=== PATIENT | female | born 1990 | race Caucasian/White ===

== ENCOUNTER 2016-09-24 18:14 | Inpatient (IN) | payer SELFPAY ==
[~2016-09-24] VITALS: Ht 165.1 cm; Wt 71.2 kg
[2016-09-24] MEDS ORDERED: SODIUM CHLORIDE 0.9% 1,000 ML IV ONE ×3 (19:08→22:30)
[2016-09-24] MEDS ORDERED: KETOROLAC TROMETH 30 MG/ML 1ML VIAL IV ONE (19:15)
[2016-09-24] MEDS ORDERED: ONDANSETRON HCL 4 MG/2 ML VIAL IV ONE (19:15)
[2016-09-24] MEDS ORDERED: ACETAMINOPHEN 325 MG TAB PO ONE ×2 (20:25→20:30)
[2016-09-24 22:04] LABS: Basophils # (auto) 0 uL; Eosinophils # (auto) 0 uL; Eosinophils % (auto) 0.2 % (0.0-7.0); Hematocrit 39.4 % (36.0-46.0); Hemoglobin 12.6 g/dL (12.2-16.2); Lymphocytes # (auto) 0.2 uL; Lymphocytes % (auto) 1.4 % (10.0-50.0); Mean Corpuscular Hemoglobin 28.5 pg (28.0-32.0); Mean Corpuscular Hgb Conc. 31.9 g/dL (32.0-36.0); Mean Corpuscular Volume 89.2 fL (80.0-100.0); Mean Platelet Volume 7.6 fL (7.4-10.4); Monocytes # (auto) 0.4 uL; Neutrophils % (auto) 95.4 % (37.0-80.0); Platelet Count (auto) 130 10^3/uL (140-450); Red Cell Distribution Width 13.2 % (11.6-16.0); SUSPECT VIEW TRANSMISSION; White Blood Cell 12.6 10^3/uL (4.4-10.8)
[2016-09-24 22:28] LABS: Albumin 2.6 g/dL (3.4-5.0); Calcium 6.9 mg/dL (8.5-10.1); Magnesium 1.4 mg/dL (1.6-2.6); Potassium 3.2 mmol/L (3.5-5.1)
[2016-09-24 22:30] LABS: Bilirubin, Total 0.7 mg/dL (0.2-1.0); Total Protein 6.2 g/dL (6.4-8.2)
[2016-09-24] MEDS ORDERED: ONDANSETRON HCL 4 MG/2 ML VIAL IV PRN (22:30)
[2016-09-24] MEDS ORDERED: VANCOMYCIN PER PHARMACY 0 MG IV SCH (22:30)
[2016-09-24] MEDS ORDERED: SODIUM CHLORIDE 0.9% 250 ML IV ONE (22:30)
[2016-09-24] MEDS ORDERED: LACTULOSE 20Gm/30ML SOLN PO PRN (22:30)
[2016-09-24] MEDS ORDERED: PANTOPRAZOLE SODIUM 40 MG/10 ML VIAL IV ONE (22:30)
[2016-09-24] MEDS ORDERED: VANCOMYCIN 1GM/250ML D5W 250 ML IV ONE (22:30)
[2016-09-24] MEDS ORDERED: LEVOFLOXACIN 500MG 100 ML IV ONE (22:30)
[2016-09-24] MEDS ORDERED: POTASSIUM CHL 10% (20 MEQ/15ML) ORAL SOLN PO ONE (22:45)
[2016-09-24 23:07] LABS: Platelet Estimate Decreased; RBC Morphology Normal
[2016-09-24 23:19] LABS: Urine RBC None Seen /hpf (0 - 4)
[2016-09-24 23:32] LABS: Urine Bilirubin Negative (Negative); Urine Color Yellow (Yellow); Urine Glucose TRACE mg/dL (Normal); Urine Granular Cast FEW /lpf (0); Urine Hyaline Cast FEW /lpf (0 - 2); Urine Ketone Negative (Negative); Urine Mucus FEW (None Seen); Urine Nitrite Negative (Negative); Urine Squamous Epithelial Cell MANY /hpf (<5); Urine Urobilinogen Normal (Negative); Urine pH 5.5 (5.0-8.0)
[2016-09-24 23:33] LABS: Urine Blood 1+ /uL (Negative)
[2016-09-25] VITALS (7 sets, daily range): BP systolic 81–100; BP diastolic 51–68
[2016-09-25] MEDS ORDERED: POTASSIUM CHLORIDE 40 MEQ, LIDOCAINE 1% (LOCAL ANESTH.) 4 ML in SODIUM CHL 0.9% 250 ML IV ONE (00:15)
[2016-09-25] MEDS ORDERED: SODIUM CHLORIDE 0.9% 1,000 ML IV ONE (01:15)
[2016-09-25] MEDS: MAGNESIUM SULFATE 1GM/100ML 100 ML IV SCH ×2 (02:33→03:51)
[2016-09-25] MEDS ORDERED: MAGNESIUM SULFATE 1GM/100ML 100 ML IV ONE (03:44)
[2016-09-25] MEDS: PANTOPRAZOLE SODIUM 40 MG/10 ML VIAL IV SCH (10:19)
[2016-09-25] MEDS: ACETAMINOPHEN 325 MG TAB PO PRN (12:11)
[2016-09-25] MEDS: SODIUM CHLORIDE 0.9% 1,000 ML IV SCH ×2 (19:04→23:36)
[2016-09-25] MEDS ORDERED: LEVOFLOXACIN 500MG 100 ML IV SCH (22:00)
[2016-09-26] MEDS: VANCOMYCIN 1GM/250ML D5W 250 ML IV SCH (02:12)
[2016-09-26 04:30] VITALS: BP 111/57
[2016-09-26] MEDS: ACETAMINOPHEN 325 MG TAB PO PRN ×2 (05:05→15:05)
[2016-09-26] MEDS ORDERED: BUPR8MIS SL (05:34)
[2016-09-26 09:00] VITALS: BP 98/61
[2016-09-26] MEDS: PANTOPRAZOLE SODIUM 40 MG/10 ML VIAL IV SCH (09:07)
[2016-09-26] MEDS: SODIUM CHLORIDE 0.9% 1,000 ML IV SCH ×2 (09:09→14:28)
[2016-09-26 13:00] VITALS: BP 103/57
[2016-09-26] MEDS ORDERED: cefTRIAXone 1GM/50ML D5W 50 ML IV ONE (14:15)
[2016-09-26 17:00] VITALS: BP 88/49
[2016-09-26 20:00] VITALS: BP 95/54
[2016-09-26 21:28] VITALS: BP 95/54
[2016-09-27] MEDS: ACETAMINOPHEN 325 MG TAB PO PRN ×3 (01:41→22:22)
[2016-09-27] MEDS: VANCOMYCIN 1GM/250ML D5W 250 ML IV SCH (02:05)
[2016-09-27] MEDS: SODIUM CHLORIDE 0.9% 1,000 ML IV SCH ×2 (03:31→16:54)
[2016-09-27 05:39] VITALS: BP 123/80
[2016-09-27 05:41] VITALS: BP 97/54
[2016-09-27 07:36] LABS: Basophils # (auto) 0 uL; Basophils % (auto) 0.2 % (0.0-2.0); Eosinophils # (auto) 0.1 uL; Hematocrit 32.9 % (36.0-46.0); Hemoglobin 10.4 g/dL (12.2-16.2); Lymphocytes # (auto) 0.8 uL; Lymphocytes % (auto) 10.7 % (10.0-50.0); Mean Corpuscular Hgb Conc. 31.6 g/dL (32.0-36.0); Mean Corpuscular Volume 88.6 fL (80.0-100.0); Mean Platelet Volume 8.6 fL (7.4-10.4); Monocytes # (auto) 0.6 uL; Monocytes % (auto) 8.7 % (0.0-12.0); Neutrophils # (auto) 5.6 uL; Neutrophils % (auto) 78.4 % (37.0-80.0); Platelet Count (auto) 117 10^3/uL (140-450); Red Cell Distribution Width 13.7 % (11.6-16.0); White Blood Cell 7.1 10^3/uL (4.4-10.8)
[2016-09-27 08:02] LABS: Albumin 2.1 g/dL (3.4-5.0); BUN/Creatinine Ratio 20.6; Calcium 7.9 mg/dL (8.5-10.1); Potassium 3.6 mmol/L (3.5-5.1)
[2016-09-27 08:12] LABS: Bilirubin, Total 0.5 mg/dL (0.2-1.0); Total Protein 5.8 g/dL (6.4-8.2)
[2016-09-27] MEDS ORDERED: cefTRIAXone 1GM/50ML D5W 50 ML IV SCH (09:00)
[2016-09-27] MEDS: PANTOPRAZOLE SODIUM 40 MG/10 ML VIAL IV SCH (10:03)
[2016-09-27] MEDS: NALOXONE SL SCH (10:04)
[2016-09-27] MEDS: [UNRECOGNIZED DRUG - OTHER] SL SCH (10:04)
[2016-09-27] MEDS: BUPRENORPHINE SL SCH (10:04)
[2016-09-27] MEDS ORDERED: LEVOFLOXACIN 500MG 100 ML IV ONE (15:00)
[2016-09-27 16:57] VITALS: BP 118/73
[2016-09-27 22:08] VITALS: BP 104/61
[2016-09-28] MEDS: SODIUM CHLORIDE 0.9% 1,000 ML IV SCH (01:06)
[2016-09-28] MEDS: ACETAMINOPHEN 325 MG TAB PO PRN ×3 (02:34→20:16)
[2016-09-28 04:44] VITALS: BP 113/68
[2016-09-28 08:57] VITALS: BP 125/74
[2016-09-28] MEDS: BUPRENORPHINE SL SCH (10:17)
[2016-09-28] MEDS: PANTOPRAZOLE SODIUM 40 MG/10 ML VIAL IV SCH (10:17)
[2016-09-28] MEDS: [UNRECOGNIZED DRUG - OTHER] SL SCH (10:17)
[2016-09-28] MEDS: LEVOFLOXACIN 500MG 100 ML IV SCH (10:17)
[2016-09-28] MEDS: NALOXONE SL SCH (10:17)
[2016-09-28 11:17] LABS: BUN/Creatinine Ratio 17.3; Magnesium 1.9 mg/dL (1.6-2.6); Potassium 3.6 mmol/L (3.5-5.1)
[2016-09-28 12:05] LABS: Basophils # (auto) 0 uL; Basophils % (auto) 0.4 % (0.0-2.0); Eosinophils # (auto) 0.1 uL; Eosinophils % (auto) 1.2 % (0.0-7.0); Hemoglobin 11.3 g/dL (12.2-16.2); Lymphocytes % (auto) 12.5 % (10.0-50.0); Mean Corpuscular Hemoglobin 28.9 pg (28.0-32.0); Mean Corpuscular Hgb Conc. 33.1 g/dL (32.0-36.0); Mean Corpuscular Volume 87.3 fL (80.0-100.0); Mean Platelet Volume 8.4 fL (7.4-10.4); Monocytes # (auto) 0.8 uL; Monocytes % (auto) 10.1 % (0.0-12.0); Neutrophils # (auto) 6.2 uL; Neutrophils % (auto) 75.8 % (37.0-80.0); Platelet Count (auto) 162 10^3/uL (140-450); Red Cell Distribution Width 13.4 % (11.6-16.0); White Blood Cell 8.1 10^3/uL (4.4-10.8)
[2016-09-28 13:00] VITALS: BP 120/77
[2016-09-28] MEDS ORDERED: MAGNESIUM OXIDE 400 MG TAB PO ONE (13:15)
[2016-09-28 17:03] VITALS: BP 113/67
[2016-09-28 17:14] LABS: Hepatitis B Surface Antibody Positive
[2016-09-28] MEDS: PRO-STAT 64 30ML PO SCH (18:40)
[2016-09-28 22:00] VITALS: BP 129/74
[2016-09-29] MEDS: SODIUM CHLORIDE 0.9% 1,000 ML IV SCH ×2 (00:10→08:50)
[2016-09-29] MEDS: ACETAMINOPHEN 325 MG TAB PO PRN ×2 (04:01→09:54)
[2016-09-29 05:13] VITALS: BP 106/56
[2016-09-29] MEDS: PRO-STAT 64 30ML PO SCH ×2 (08:50→17:04)
[2016-09-29 09:00] VITALS: BP 124/78
[2016-09-29] MEDS: PANTOPRAZOLE SODIUM 40 MG/10 ML VIAL IV SCH (09:53)
[2016-09-29] MEDS: LEVOFLOXACIN 500MG 100 ML IV SCH (09:54)
[2016-09-29] MEDS: NALOXONE SL SCH (09:55)
[2016-09-29] MEDS: [UNRECOGNIZED DRUG - OTHER] SL SCH (09:55)
[2016-09-29] MEDS: BUPRENORPHINE SL SCH (09:55)
[2016-09-29 13:00] VITALS: BP 120/74
[2016-09-29] MEDS ORDERED: LEVO500T3 PO (13:11)
[2016-09-29 17:00] VITALS: BP 125/88
== END 2016-09-29 18:00 | disposition home or self-care (01) | DRG 871 ==
LOC: ER 18:19 → TELE 18:20 → TELE-WESTW 23:42 → WEST WING 09-27 23:52
PROVIDERS: ADMIT Family Medicine; ATTEND Internal Medicine
DX: A41.01 Sepsis due to Methicillin susceptible Staphylococcus aureus (principal); N17.0 Acute kidney failure with tubular necrosis; N12 Tubulo-interstitial nephritis, not specified as acute or chronic; E87.6 Hypokalemia; F17.210 Nicotine dependence, cigarettes, uncomplicated; Z88.0 Allergy status to penicillin; Z88.1 Allergy status to other antibiotic agents; Z98.890 Other specified postprocedural states
CPT/HCPCS: 36415; 71020; 71250; 74176; 80048; 80053; 80320; 81001; 83605; 83735; 84702; 85025; 86703; 86704; 86706; 86708; 86803; 87040; 87077; 87086; 87186; 87340; 87400; 93306; 94761; 96361; 96365; 96375; 96376; C9113; G0434; J0696; J1885; J1956; J2001; J2405